=== PATIENT | female | born 1970 | race Caucasian/White ===

== ENCOUNTER 2016-03-16 12:26 | Emergency (ER) | payer BC ==
[2016-03-16] MEDS ORDERED: ASPIRIN 81 MG TABLET, CHEWABLE PO ONE (12:46)
--- NOTE | 2016-03-16 12:46 | ER Document Report ---
ED Medical Screen (RME) - General Stated Complaint: CHEST PAIN Time seen by provider: 12:43 Mode of Arrival: Ambulatory Information source: Patient Notes: 46-year-old female presents to ED for shortness of breath and sternal chest pressure radiating to the back. She states she's had it for about 2 days but thought it was gas but is not going away. She states it went from a pain to now it is just pressure. Former smoker history of high blood pressure denies any cardiac problems before this denies COPD and asthma. States her father had his first heart attack around 50 and of from a heart attack around 56.
--- NOTE | 2016-03-16 13:01 | EKG REPORT ---
SEVERITY:- BORDERLINE ECG - SINUS TACHYCARDIA BORDERLINE INFERIOR Q WAVES : Confirmed by: Alverto Prakash MD 16-Mar-2016 13:00:40
[2016-03-16 13:13] LABS: ABSOLUTE LYMPHOCYTES (AUTO) 1.9 10^3/uL (0.5-4.7); ABSOLUTE MONOCYTES (AUTO) 0.5 10^3/uL (0.1-1.4); ABSOLUTE NEUT (AUTO) 3.8 10^3/uL (1.7-8.2); BASOPHILS % (AUTO) 0.8 % (0-2); EOSINOPHILS % (AUTO) 0.4 % (0-6); HEMOGLOBIN 13.7 g/dL (12.0-15.5); HGB HCT DIFFERENCE 0.1; MEAN CORPUSCULAR HEMOGLOBIN 31.2 pg (27.0-33.4); MEAN CORPUSCULAR HGB CONC 33.4 g/dL (32.0-36.0); MEAN CORPUSCULAR VOLUME 93 fl (80-97); MONOCYTES % (AUTO) 8.1 % (3-13); RED BLOOD COUNT 4.39 10^6/uL (3.72-5.28); RED CELL DISTRIBUTION WIDTH 13.4 % (11.5-14.0); SEGMENTED NEUTROPHILS % (AUTO) 60.7 % (42-78); WHITE BLOOD COUNT 6.3 10^3/uL (4.0-10.5)
[2016-03-16 13:18] LABS: PROTHROMBIN TIME 13.3 SEC (11.4-15.4)
[2016-03-16 13:37] LABS: ALANINE AMINOTRANSFERASE 26 U/L (9-52); ALBUMIN 4.2 g/dL (3.5-5.0); ALKALINE PHOSPHATASE 50 U/L (38-126); ANION GAP 11 (5-19); ASPARTATE AMINO TRANSFERASE 25 U/L (14-36); BILIRUBIN,TOTAL 0.7 mg/dL (0.2-1.3); BLOOD UREA NITROGEN 13 mg/dL (7-20); CALCIUM 9.5 mg/dL (8.4-10.2); CARBON DIOXIDE 26 mmol/L (22-30); CHLORIDE 106 mmol/L (98-107); CREATINE KINASE 62 U/L (30-135); CREATININE RESULT 0.68 mg/dL (0.52-1.25); GLUCOSE 93 mg/dL (75-110); MAGNESIUM 1.9 mg/dL (1.6-2.3); POTASSIUM 3.8 mmol/L (3.6-5.0); SODIUM 142.6 mmol/L (137-145); TOTAL PROTEIN 7.6 g/dL (6.3-8.2)
[2016-03-16 13:47] LABS: CREATINE KINASE MB 0.32 ng/mL (<4.55)
[2016-03-16 13:48] LABS: TROPONIN I < 0.012 ng/mL
[2016-03-16] MEDS ORDERED: LIDOCAINE 2% VISCOUS SOLN 20 ML UDCUP PO ONE (14:36)
[2016-03-16] MEDS ORDERED: METOCLOPRAMIDE HCL ORAL SOLN 10 MG/10 ML UDCUP PO ONE (14:36)
[2016-03-16] MEDS ORDERED: MAG HYDROX/AL HYDROX/SIMETH SUSP 30 ML UDCUP PO ONE (14:36)
--- NOTE | 2016-03-16 14:50 | ER Document Report ---
ED General - General Chief Complaint: Chest Pain Stated Complaint: CHEST PAIN Mode of Arrival: Ambulatory TRAVEL OUTSIDE OF THE [place] IN LAST 30 DAYS: No - HPI Patient complains to provider of: chest pain Notes: Patient coming in today history of chest pressure worse with movement and twisting motion. Patient station she thought was gas however arrived to work today when the local medical clinics was examined by local physician told come to the ER for further evaluation. Upon arrival patient was found to be tachycardic however denies any short of breath nausea vomiting fevers or chills. Patient denies any recent travel denies any recent trauma. Patient states mother has a history of hypertension father of a heart attack age 56 with 6 heart attacks prior to this. Patient also states recently taken off her hydrochlorothiazide was improved commendation pill because she was dehydrated. Patient has not taken any other blood pressure medications. Patient has a history of [id number] smoker however currently does not smoke. - Related Data Allergies/Adverse Reactions: codeine Allergy (Verified 03/16/16 12:46) Past Medical History - General Information source: Patient - Social History Smoking Status: Former Smoker Chew tobacco use (# tins/day): No Frequency of alcohol use: None Drug Abuse: None Family History: Reviewed & Not Pertinent Patient has suicidal ideation: No Patient has homicidal ideation: No Renal/ Medical History: Denies: Hx Peritoneal Dialysis Review of Systems - Review of Systems Constitutional: No symptoms reported EENT: No symptoms reported Cardiovascular: Chest pain, Other - Pressure Respiratory: No symptoms reported Gastrointestinal: No symptoms reported Genitourinary: No symptoms reported Female Genitourinary: No symptoms reported Musculoskeletal: No symptoms reported Skin: No symptoms reported Hematologic/Lymphatic: No symptoms reported Neurological/Psychological: No symptoms reported Physical Exam - Vital signs Vitals: Temp Pulse Resp BP Pulse Ox 98.2 F 105 H 20 149/87 H 97 03/16/16 12:40 03/16/16 12:40 03/16/16 12:40 03/16/16 12:40 03/16/16 12:40 Interpretation: Normal - General General appearance: Appears well, Alert - HEENT Head: Normocephalic, Atraumatic Eyes: Normal Pupils: PERRL - Respiratory Respiratory status: No respiratory distress Chest status: Tender - Tenderness to palpation of the center chest does reproduce patient's pain Breath sounds: Normal Chest palpation: Normal - Cardiovascular Rhythm: Regular Heart sounds: Normal auscultation Murmur: No - Abdominal Inspection: Normal Distension: No distension Bowel sounds: Normal Tenderness: Nontender Organomegaly: No organomegaly - Back Back: Normal, Nontender - Extremities General upper extremity: Normal inspection, Nontender, Normal color, Normal ROM , Normal temperature General lower extremity: Normal inspection, Nontender, Normal color, Normal ROM , Normal temperature, Normal weight bearing. No: Cony's sign - Neurological Neuro grossly intact: Yes Cognition: Normal Orientation: AAOx4 Stuart Coma Scale Eye Opening: Spontaneous Stuart Coma Scale Verbal: Oriented Serge Coma Scale Motor: Obeys Commands Stuart Coma Scale Total: 15 Speech: Normal Motor strength normal: LUE, RUE, LLE, RLE Sensory: Normal - Psychological Associated symptoms: Normal affect, Normal mood - Skin Skin Temperature: Warm Skin Moisture: Dry Skin Color: Normal Course - Re-evaluation Re-evalutation: 03/16/16 22:22 D-dimer troponins 2 were negative. Patient's pain is better after GI cocktail. Encouraged patient to follow-up with cardiology. Patient will be discharged home - Vital Signs Vital signs: Temp Pulse Resp BP Pulse Ox 98.2 F 105 H 18 128/84 H 95 03/16/16 18:01 03/16/16 12:40 03/16/16 18:01 03/16/16 18:01 03/16/16 18:01 - Laboratory Result Diagrams: 03/16/16 12:55 03/16/16 12:55 Laboratory results interpreted by me: 03/16/16 15:47 Ur Leukocyte Esterase LARGE H Discharge - Discharge Clinical Impression: Chest pain of uncertain etiology Condition: Good Disposition: HOME, SELF-CARE Instructions: Chest Pain of Unclear Cause ([facility]), Chest Wall Pain ([facility]) Additional Instructions: Your labwork shows no signs of a PE and DVT cardiac ischemia heart attack or infection. I would highly recommend that you follow-up with spa technician provided and your local provider return to the ER symptoms worsen. Prescriptions: Omeprazole 20 mg PO DAILY #14 capsule.dr Forms: Return to Work Referrals: SANDY MONTES, MELLC [Primary Care Provider] - Follow up in 3-5 days ÁNGELA TALLEY MD [ACTIVE STAFF] - Follow up as needed
[2016-03-16 16:16] LABS: APPEARANCE,URINE SLIGHTLY-CLOUDY; BILIRUBIN,URINE NEGATIVE (NEGATIVE); GLUCOSE, URINE NEGATIVE (NEGATIVE); KETONES,URINE NEGATIVE (NEGATIVE); LEUKOCYTE ESTERASE,URINE LARGE (NEGATIVE); NITRITE,URINE NEGATIVE (NEGATIVE); PROTEIN,URINE NEGATIVE (NEGATIVE); URINE SPECIFIC GRAVITY 1.024; UROBILINOGEN,URINE NEGATIVE mg/dL (<2.0)
[2016-03-16 17:07] LABS: URINE BARBITURATES SCREEN NEGATIVE; URINE METHADONE SCREEN NEGATIVE; URINE PHENCYCLIDINE SCREEN NEGATIVE
[2016-03-16 18:08] VITALS: BP 128/84
== END 2016-03-16 18:12 | disposition home or self-care (01) ==
LOC: ER 12:26
DX: R07.89 Other chest pain (principal); R00.0 Tachycardia, unspecified; Z82.49 Family history of ischemic heart disease and other diseases of the circulatory system; Z87.891 Personal history of nicotine dependence; Z88.5 Allergy status to narcotic agent
CPT/HCPCS: 93005; 99285; 36415; 82553; 82550; 83735; 84443; 85025; 85610; 80053; 81001; 84484; 80307; 85379; 71020; 93010; J3490

== ENCOUNTER 2018-03-19 07:12 | Emergency (ER) | payer BC ==
[2018-03-19] MEDS ORDERED: NORMAL SALINE 1000 ML 1,000 ML IV ONE (08:43)
[2018-03-19] MEDS ORDERED: ONDANSETRON HCL INJ/PF 4 MG/2 ML SDV IV ONE (08:43)
[2018-03-19] MEDS ORDERED: FAMOTIDINE INJ/PF 20 MG/2 ML SDV IV ONE (08:43)
[2018-03-19] MEDS ORDERED: KETOROLAC TROMETHAMINE INJ/PF 30 MG/1 ML SDV IV ONE (08:43)
[2018-03-19 08:53] LABS: ABSOLUTE LYMPHOCYTES (AUTO) 1.5 10^3/uL (0.5-4.7); ABSOLUTE NEUT (AUTO) 9.1 10^3/uL (1.7-8.2); BASOPHILS % (AUTO) 0.4 % (0-2); EOSINOPHILS % (AUTO) 0.3 % (0-6); HEMATOCRIT 41.6 % (36.0-47.0); HEMOGLOBIN 14.2 g/dL (12.0-15.5); MEAN CORPUSCULAR HEMOGLOBIN 31.6 pg (27.0-33.4); MEAN CORPUSCULAR HGB CONC 34.2 g/dL (32.0-36.0); MEAN CORPUSCULAR VOLUME 92 fl (80-97); MONOCYTES % (AUTO) 8.7 % (3-13); PLATELET COUNT 329 10^3/uL (150-450); RED BLOOD COUNT 4.51 10^6/uL (3.72-5.28); RED CELL DISTRIBUTION WIDTH 13.8 % (11.5-14.0); SEGMENTED NEUTROPHILS % (AUTO) 77.6 % (42-78); TOTAL CELLS COUNTED % (AUTO) 100 %; WHITE BLOOD COUNT 11.7 10^3/uL (4.0-10.5)
--- NOTE | 2018-03-19 08:54 | ER Document Report ---
ED General - General Chief Complaint: Abdominal Pain Stated Complaint: ABDOMINAL PAIN Time Seen by Provider: 03/19/18 08:38 Primary Care Provider: HEALTH,EMPLOYEE [ACTIVE STAFF] - Follow up as needed TRAVEL OUTSIDE OF THE [place] IN LAST 30 DAYS: No - HPI Notes: Patient is a 48-year-old female that presents to the emergency department for chief complaint of right upper quadrant abdominal pain and chest pain. Patient reports over the last 3 weeks she has had increasing pain after eating in her right upper quadrant. She states every other member of her family has had to have their gallbladder out and she is assuming this is her gallbladder. She reports a sharp pain in her right upper quadrant about 30 minutes after eating. The pain became constant around 3 AM last night. It is now radiating up into her chest on the left side. She denies any dyspnea lightheadedness or palpitations. She denies history of cardiac disease in the past. She states she is nauseated and has had multiple episodes of emesis. The chest pain began after she vomited. She denies any hematemesis, melena, fevers or chills. She has not taken any [id number] medicine for her symptoms. She denies any relieving factors to her symptoms. Past Medical History: Hypertension Past Surgical History: Left eye cyst movable Social History: Occasional marijuana, daily vaporized tobacco, denies alcohol Family History: Reviewed and noncontributory for presenting illness Allergies: Reviewed, see documented allergy list. REVIEW OF SYSTEMS: CONSTITUTIONAL : No fever No chills No diaphoresis No recent illness EENT: No vision changes No congestion No sore throat CARDIOVASCULAR: chest pain No palpitations RESPIRATORY: No shortness of breath No cough No difficulty breathing GASTROINTESTINAL: abdominal pain nausea vomiting No diarrhea GENITOURINARY: No dysuria No hematuria No difficulty urinating MUSCULOSKELETAL: No back pain No leg pain No arm pain SKIN: No rashes No lesions LYMPHATIC: No swollen, enlarged glands. NEUROLOGICAL: No lightheadedness No headache No weakness No paresthesias PSYCHIATRIC: No anxiety No depression PHYSICAL EXAMINATION: Vital signs reviewed, nursing noted reviewed. GENERAL: Well-appearing, well-nourished and in no acute distress. HEAD: Atraumatic, normocephalic. EYES: Eyes appear normal, extraocular movements intact, sclera anicteric, conjunctiva are normal. ENT: nares patent, oropharynx clear without exudates. Moist mucous membranes. NECK: Normal range of motion, supple without lymphadenopathy LUNGS: Breath sounds clear to auscultation bilaterally and equal. No wheezes rales or rhonchi. HEART: Regular rate and rhythm without murmurs ABDOMEN: Soft, positive Nino sign, right upper quadrant tenderness,, normoactive bowel sounds. No rebound, guarding, or rigidity. No masses appr eciated. EXTREMITIES: Nontender, good range of motion, no pitting or edema. NEUROLOGICAL: No focal neurological deficits. Moves all extremities spontaneously Motor and sensory grossly intact on exam. PSYCH: Normal mood, normal affect. SKIN: Warm, Dry, normal turgor, no rashes or lesions noted on exposed skin - Related Data Allergies/Adverse Reactions: codeine Allergy (Verified 03/19/18 07:16) Past Medical History - Social History Smoking Status: Never Smoker Family History: Reviewed & Not Pertinent - Past Medical History Cardiac Medical History: Reports: Hx Hypertension Renal/ Medical History: Denies: Hx Peritoneal Dialysis Physical Exam - Vital signs Vitals: Temp Pulse Resp BP Pulse Ox 98.4 F 91 18 156/96 H 96 03/19/18 07:30 03/19/18 07:30 03/19/18 07:30 03/19/18 07:30 03/19/18 07:30 Course - Re-evaluation Re-evalutation: 03/19/18 08:53 Vitals reviewed. Nursing notes reviewed. Patient given IV fluids, pain medic ine and Pepcid for symptomatic management. She does have a positive Nino sign and ultrasound will be obtained to evaluate for underlying cholecystitis. 03/19/18 10:22 Patient reevaluated and states she is feeling much better. She is jet dyeing machine tender in her right upper quadrant but is not guarding. The remainder of her abdominal exam is soft and benign. Patient is able to tolerate oral intake. Her right upper quadrant ultrasound is normal. Patient has normal LFTs and renal function. The remainder of her workup is unremarkable. She is not an acute cholecystitis and does not have any obstructing gallstones. Patient will be referred to general surgery if she continues to have biliary colic. She will be started on omeprazole for symptomatic management. She was counseled on dietary changes to assist with GERD symptoms. Her troponin and chest x-ray are also unremarkable and I do not suspect ACS as a cause of her chest pain, it was likely referred pain. Patient told to return for new or worsening symptoms. She is stable at time of discharge and in agreement with this plan. Laboratory 03/19/18 03/19/18 03/19/18 08:40 08:40 08:40 WBC 11.7 H RBC 4.51 Hgb 14.2 Hct 41.6 MCV 92 MCH 31.6 MCHC 34.2 RDW 13.8 Plt Count 329 Seg Neutrophils % 77.6 Lymphocytes % 13.0 Monocytes % 8.7 Eosinophils % 0.3 Basophils % 0.4 Absolute Neutrophils 9.1 H Absolute Lymphocytes 1.5 Absolute Monocytes 1.0 Absolute Eosinophils 0.0 Absolute Basophils 0.0 Sodium 137.6 Potassium 4.1 Chloride 102 Carbon Dioxide 28 Anion Gap 8 BUN 15 Creatinine 0.59 Est GFR ( Amer) > 60 Est GFR (Non-Af Amer) > 60 Glucose 90 Calcium 9.7 Total Bilirubin 0.4 Direct Bilirubin 0.2 Neonat Total Bilirubin Not Reportable Neonat Direct Bilirubin Not Reportable Neonat Indirect Bili Not Reportable AST 22 ALT 31 Alkaline Phosphatase 65 Troponin I < 0.012 Total Protein 7.2 Albumin 4.5 Lipase 275.7 Abdomen Ultrasound 03/19/18 08:42 IMPRESSION: NORMAL RIGHT UPPER QUADRANT ULTRASOUND. Chest X-Ray 03/19/18 08:43 IMPRESSION: NO SIGNIFICANT RADIOGRAPHIC FINDING IN THE CHEST. - Vital Signs Vital signs: Temp Pulse Resp BP Pulse Ox 98.4 F 91 13 141/95 H 99 03/19/18 07:30 03/19/18 07:30 03/19/18 09:17 03/19/18 09:18 03/19/18 09:17 - Laboratory Result Diagrams: 03/19/18 08:40 03/19/18 08:40 Laboratory results interpreted by me: 03/19/18 08:40 WBC 11.7 H Absolute Neutrophils 9.1 H - EKG Interpretation by Me Additional EKG results interpreted by me: 03/19/18 09:20 Interpreted by myself [id number]: Normal sinus rhythm, rate 78, normal axis, no ectopy, no STEMI Discharge - Discharge Clinical Impression: Abdominal pain, right upper quadrant, Nonspecific chest pain, Biliary colic symptom Condition: Stable Disposition: HOME, SELF-CARE Instructions: Low-Fat Diet ([facility]), Abdominal Pain ([facility]), Family Physicians / Practices Additional Instructions: Please return to the emergency department if you have any worsening, or concern of your symptoms. Please return to the emergency department if you develop chest pain, difficulty breathing, severe abdominal pain, or ongoing vomiting. Please follow-up with your primary care physician in 2-3 days and any other recommended physicians. If prescribed, take all medications as directed. If you have any questions or concerns do not hesitate to return the emergency department for evaluation. [] Referrals: HEALTH,EMPLOYEE [ACTIVE STAFF] - Follow up as needed HELDER TAVERAS MD [[facility]] - Follow up as needed
[2018-03-19 09:15] LABS: ALANINE AMINOTRANSFERASE 31 U/L (9-52); ALBUMIN 4.5 g/dL (3.5-5.0); ALKALINE PHOSPHATASE 65 U/L (38-126); ANION GAP 8 (5-19); ASPARTATE AMINO TRANSFERASE 22 U/L (14-36); BILIRUBIN,DIRECT 0.2 mg/dL (0.0-0.4); BILIRUBIN,TOTAL 0.4 mg/dL (0.2-1.3); BLOOD UREA NITROGEN 15 mg/dL (7-20); CALCIUM 9.7 mg/dL (8.4-10.2); CARBON DIOXIDE 28 mmol/L (22-30); CHLORIDE 102 mmol/L (98-107); GLUCOSE 90 mg/dL (75-110); LIPASE 275.7 U/L (23-300); POTASSIUM 4.1 mmol/L (3.6-5.0); SODIUM 137.6 mmol/L (137-145); TOTAL PROTEIN 7.2 g/dL (6.3-8.2)
--- NOTE | 2018-03-19 09:27 | RADIOLOGY REPORT (SQ) ---
EXAM DESCRIPTION: CHEST SINGLE VIEW COMPLETED DATE/TIME: 03/19/2018 9:17 am REASON FOR STUDY: chest pain COMPARISON: 2017. NUMBER OF VIEWS: One view. TECHNIQUE: Single frontal radiographic view of the chest acquired. LIMITATIONS: None. FINDINGS: LUNGS AND PLEURA: No opacities, masses or pneumothorax. No pleural effusion. MEDIASTINUM AND HILAR STRUCTURES: No masses. Contour normal. HEART AND VASCULAR STRUCTURES: Heart normal in size. Normal vasculature. BONES: No acute findings. HARDWARE: None in the chest. OTHER: No other significant finding. IMPRESSION: NO SIGNIFICANT RADIOGRAPHIC FINDING IN THE CHEST. TECHNICAL DOCUMENTATION: JOB ID: [id number] [employer] All Rights Reserved Reading location - IP/workstation name: [email or web address]
--- NOTE | 2018-03-19 10:08 | RADIOLOGY REPORT (SQ) ---
EXAM DESCRIPTION: U/S ABDOMEN LIMITED W/O DOP COMPLETED DATE/TIME: 03/19/2018 9:42 am REASON FOR STUDY: RUQ pain COMPARISON: None. TECHNIQUE: Dynamic and static grayscale images acquired of the abdomen and recorded on PACS. Additio nal selected color Doppler and spectral images recorded. LIMITATIONS: None. FINDINGS: PANCREAS: Midline pancreas unremarkable LIVER: No masses. Echotexture normal. LIVER VASCULATURE: Normal directional flow of the main portal vein and hepatic veins. GALLBLADDER: No stones. Normal wall thickness. No pericholecystic fluid. ULTRASOUND-DETECTED ALEXIS'S SIGN: Negative. INTRAHEPATIC DUCTS AND COMMON DUCT: CBD and intrahepatic ducts normal caliber. No filling defects. INFERIOR VENA CAVA: Normal flow. AORTA: No aneurysm. RIGHT KIDNEY: Normal size. Normal echogenicity. No solid or suspicious masses. No hydronephrosis. No calcifications. PERITONEAL AND RIGHT PLEURAL SPACE: No ascites or effusions. OTHER: No other significant findings. IMPRESSION: NORMAL RIGHT UPPER QUADRANT ULTRASOUND. TECHNICAL DOCUMENTATION: JOB ID: [id number] [employer] All Rights Reserved Reading location - IP/workstation name: [facility]
[2018-03-19 10:56] VITALS: BP 146/95
--- NOTE | 2018-03-20 08:08 | EKG REPORT ---
SEVERITY:- NORMAL ECG - SINUS RHYTHM : Confirmed by: Kierra Orlando MD 20-Mar-2018 08:07:31
== END 2018-03-19 10:56 | disposition home or self-care (01) ==
LOC: ER 07:12
DX: R10.11 Right upper quadrant pain (principal); R07.9 Chest pain, unspecified; K80.50 Calculus of bile duct without cholangitis or cholecystitis without obstruction; I10 Essential (primary) hypertension; Z88.6 Allergy status to analgesic agent
CPT/HCPCS: 93005; 99284; 96361; 96374; 96375; 36415; 83690; 85025; 80053; 84484; 71045; 76705; 93010; J1885; J2405; J7030; S0028